=== PATIENT | female | born 1990 | race Caucasian/White ===

== ENCOUNTER 2019-03-06 12:00 | Outpatient (CLI) | payer OTHER, SELFPAY | END 2019-03-06 12:01 | disposition home or self-care (01) | LOC: SLEEP 03-12 11:08 | PROVIDERS: Family Provider Internal Medicine; PCP Internal Medicine; Visit Provider Internal Medicine | DX: G47.10 Hypersomnia, unspecified (principal); M05.79 Rheumatoid arthritis with rheumatoid factor of multiple sites without organ or systems involvement; Z79.899 Other long term (current) drug therapy; H57.10 Ocular pain, unspecified eye; M06.4 Inflammatory polyarthropathy; R79.82 Elevated C-reactive protein (CRP) | CPT/HCPCS: 99214; G0399 ==

== ENCOUNTER 2019-05-22 22:41 | Emergency (ER) | payer OTHER, SELFPAY ==
--- NOTE | 2019-05-22 22:46 | XR_ITS ---
WS: [id number] PORTABLE CHEST HISTORY: cough/congestion COMPARISON: 01/14/2019 Lungs are clear and well expanded. No pleural effusion or pneumothorax. Cardiac size: Normal. Mediastinum/Aorta: Normal mediastinum. No osseous abnormality seen. XR/XR chest 1V portable [id number] IMPRESSION: Unremarkable portable chest.
--- NOTE | 2019-05-22 22:46 | W.ED.URI ---
HPI - URI/Sore Throat General: Chief Complaint: Chest Pain Stated Complaint: SOB, Cough Time Seen by Provider: 05/22/19 22:46 Source: patient Mode of arrival: ambulatory Limitations: no limitations History of Present Illness: HPI Narrative: Patient is a very nice 28-year-old female who presents to ED today with complaints of chest pain, cough, shortness of breath. Patient states cough is been present over the past week. Patient states she works at [employer] and has been exposed to several sick individuals however none of them have tested positive for COVID-19. Patient states she became concerned this evening when she began having chest pains and shortness of breath. She was seen at a local [facility] and told to come to the emergency department for evaluation. MD elicited complaint: cough Onset (ago): day(s) Consistency: intermittent Able to tolerate fluids by mouth: Yes Exacerbating factors: nothing Relieving factors: nothing Context: sick contacts (through work) Associated symptoms: Reports chest pain; Deny abdominal pain, chills, diarrhea, fever(s), headache(s), nasal congestion, nausea or vomiting Treatments prior to arrival: none Review of Systems General: Reports: 10 or more systems reviewed and unremarkable except in HPI and below Const: Reports: body aches; Denies: fever, chills, change in appetite, change in weight, fatigue or malaise Eyes: Denies: change in vision, blurry vision or photophobia ENMT: Denies: throat pain, enlarged tonsils, painful swallowing, nasal discharge or nasal congestion Card: Reports: chest pain and shortness of breath on exertion; Denies: palpitations, irregular heart rhythm, edema, swelling of feet/ankles, lightheadedness, syncope, pre-syncope, shortness of breath when lying down or bluish discoloration of hands/feet Resp: Reports: shortness of breath, productive cough and chest congestion; Denies: pain on inspiration or coughing up blood GI: Denies: abdominal pain, nausea, vomiting or diarrhea Musc: Denies: neck pain or back pain Skin/Breast: Denies: rash Neuro: Denies: headache, numbness in extremities, weakness in extremities or changes in sensation PFS ED PFSH: Medical History (Updated 05/22/19 @ 23:43 by DAMIEN Escobedo) CRP elevated Other residential (current) drug therapy Rheumatoid arthritis with positive rheumatoid factor Surgical History (Updated 03/06/19 @ 15:05 by Aiden Lr MD) History of cholecystectomy Social History Smoking and tobacco status: never smoked Physical Exam Const: COMMON NORMALS: no apparent distress, average body habitus, oriented x3, no limitations, healthy appearing, alert and well nourished Neck/C-Spine: COMMON NORMALS: no lymphadenopathy Chest: COMMONS NORMALS: inspection of chest normal and palpation of chest normal Resp: COMMON NORMALS: normal respiratory effort and clear to auscultation bilaterally AUSCULTATION: clear to auscultation bilaterally Cardio: COMMON NORMALS: regular rhythm RATE: tachycardic RHYTHM: regular rhythm Neuro: COMMON NORMALS: oriented x3 SENSORIUM/ORIENTATION: Yes alert Skin: COMMON NORMALS: no rashes or lesions noted GENERAL SKIN EXAM: no rashes or lesions noted Course Vital Signs: Vital signs: Vital Signs Temperature 98.2 F 05/22/19 22:50 Pulse Rate 112 H 05/22/19 22:50 Respiratory Rate 18 05/22/19 22:50 Blood Pressure 148/94 05/22/19 22:50 Pulse Oximetry 98 05/22/19 22:50 MDM - URI/Sore Throat MDM Narrative: Medical decision making narrative: Patient clinically appears well. She has no signs or symptoms of acute respiratory distress. Her CXR is normal. Apart from being mildly tachycardic the remainder of her vitals are stable. She states she did receive an influenza swab approximately a week ago through her work at [employer] and this was negative. I did go ahead and obtain COVID-19 testing. She was recommended to self quarantine at home. She needs to return to the emergency department for worsening shortness of breath or difficulty breathing Imaging Data^: CXR: My impression: NAD EKG Data^: EKG 1: EKG interpretation date: 05/22/19 EKG interpretation time: 23:32 Computer Generated Interpretation: Sinus tachycardia Rate [address] elevation or depression noted Discharge Plan Discharge Patient Disposition: Home, Self-Care Clinical Impression: Upper respiratory infection Qualifiers: URI type: unspecified URI Qualified Code(s): J06.9 - Acute upper respiratory infection, unspecified Condition: Stable Prescriptions: No Action Nexplanon 68 mg implant 1 implant SUBDERMAL ONCE RF: 0 topiramate [Topamax] 25 mg tablet 25 mg PO QDAY RF: 0 Zyrtec 10 mg capsule 10 mg PO QDAY RF: 0 prednisone 2.5 mg tablet 10 mg PO DIRECTED PRN (Reason: RA flare up ) 3 Days Qty: 30 RF: 2 sulfasalazine 500 mg tablet 1 gm PO BID Qty: 120 RF: 2 Discharge Orders: Discharge Order (Routine); Ordered 05/22/19 Ordered By: Mis Garcias Referrals: Johanna Hays MD [Primary Care Provider] - Discharge Diet: Usual diet Discharge Activity: Increase activity as tolerated Activity Restrictions/Additional Instructions: As discussed you should be contacted with your COVID-19 testing anywhere from 12 to 72 hours from now. You need to self quarantine over the next 2 weeks. Return to the emergency department for severe shortness of breath, difficulty breathing, any other concerns you may have. I hope you get to feeling better soon. Coding Level of Care Code ED [employer] for Alex Siddiqui
[2019-05-22 22:50] VITALS: BP 148/94; PULSE 112; RESP 18; TEMP 36.8; O2SAT 98; BMI 36.0
--- NOTE | 2019-05-22 23:03 | ECG_ITS ---
Measurements Intervals [place] Rate: 100 P: 31 TN: 177 QRS: 8 QRSD: 88 T: -1 QT: 331 QTc: 428 SINUS TACHYCARDIA No previous ECG available for comparison Electronically Signed On 05-23-2019 13:45:19 CDT by Lakisha Kelly M.D. [email or web address]
[2019-05-23] MEDS: albuterol 8 gm MDI 2 PUFF INHALATION (00:12)
[2019-05-23 00:16] VITALS: PULSE 87; RESP 16; O2SAT 98
[2019-05-23 00:18] VITALS: PULSE 88; RESP 16; O2SAT 98
[2019-05-23 01:07] VITALS: BP 135/86; PULSE 94; RESP 18; O2SAT 97
--- NOTE | 2019-05-26 11:01 | PC.NURSE ---
called pt and informed her that her covid test was negative.
[2019-05-26 14:13] LABS: Coronavirus Overall Results NOT DETECTED
== END 2019-05-23 01:08 | disposition home or self-care (01) ==
PROVIDERS: Emergency Provider Physician Assistant; Family Provider Internal Medicine; PCP Internal Medicine
DX: J06.9 Acute upper respiratory infection, unspecified (principal); M05.9 Rheumatoid arthritis with rheumatoid factor, unspecified; R79.82 Elevated C-reactive protein (CRP); Z79.899 Other long term (current) drug therapy
CPT/HCPCS: 12345; 71045; 87635; 93005; 94640; 99281; 99283; J3535

== ENCOUNTER → 2019-07-08 15:01 | Outpatient (BNVA) | payer OTHER, SELFPAY | PROVIDERS: Family Provider Internal Medicine; PCP Internal Medicine; Visit Provider Internal Medicine Rheumatology | DX: M05.79 Rheumatoid arthritis with rheumatoid factor of multiple sites without organ or systems involvement (principal); Z79.899 Other long term (current) drug therapy; R74.0 Nonspecific elevation of levels of transaminase and lactic acid dehydrogenase [LDH] | CPT/HCPCS: 99214 ==

== ENCOUNTER → 2019-10-14 15:36 | Outpatient (BNVA) | payer OTHER, SELFPAY | PROVIDERS: Family Provider Internal Medicine; PCP Internal Medicine; Visit Provider Internal Medicine Rheumatology | DX: M05.79 Rheumatoid arthritis with rheumatoid factor of multiple sites without organ or systems involvement (principal); Z79.899 Other long term (current) drug therapy; K71.6 Toxic liver disease with hepatitis, not elsewhere classified; T50.905A Adverse effect of unspecified drugs, medicaments and biological substances, initial encounter; R74.0 Nonspecific elevation of levels of transaminase and lactic acid dehydrogenase [LDH] | CPT/HCPCS: 99214 ==

== ENCOUNTER 2020-11-12 11:37 | Outpatient (CLI) | payer OTHER, SELFPAY ==
[2020-11-12 11:49] VITALS: BP 132/88; PULSE 93; RESP 20; TEMP 36.6; O2SAT 98; BMI 39.4
[2020-11-12 12:15] VITALS: BP 116/72; PULSE 68; RESP 18; TEMP 36.3; O2SAT 97
[2020-11-12 13:05] VITALS: BP 128/84; PULSE 82; RESP 16; TEMP 36.3; O2SAT 98
== END 2020-11-12 11:38 | disposition home or self-care (01) ==
PROVIDERS: PCP Nurse Practitioner Family; Visit Provider Nurse Practitioner Family
DX: U07.1 COVID-19 (principal)
CPT/HCPCS: 96365